=== PATIENT | female | born 1995 | race African-American/Black ===

== ENCOUNTER 2017-08-01 00:42 | Emergency (ER) | payer SELFPAY ==
[2017-08-01 00:43] VITALS: BP 134/72; PULSE 72; RESP 15; TEMP 36.9; BMI 38.9
--- NOTE | 2017-08-01 01:38 | ED.VISSUMM ---
- ER Visit Summary Date of Service: 08/01/17 Chief Complaint: [Pain right wrist] History of Present Illness: The patient is a 21 F [presents the emergency department with complaint of pain in her right wrist ?1 week. Patient denies any trauma. Patient believes it may be due to repetitive motions performed at work with the right wrist. Patient is right-hand dominant. Patient does not want to file this under workman's comp. She denies any fevers. She has not had issues with her wrist like this before.] Physical Examination: [Right wrist-no soft tissue swelling, ecchymosis, deformity. Patient has diffuse tenderness to palpation. She has normal range of motion of all digits. Patient has normal pulses. Patient has normal sensation.] Test Results: [None indicated] Emergency Department Course and Treatment: [Patient was given a wrist splint] Treatment Plan: [Patient will be given work restrictions and a prescription for naproxen] Disposition: [Discharged home in stable condition] Impression: [Right wrist pain-suspect overuse injury] This note was generated with [employer] dictation software. It may contain incorrect words, spelling, and punctuation that were not noted in review of the chart prior to signing ED Disposition - Plan for ED Patient: Chief Complaint: Upper Extremity Injury Referrals: Care Physician,No Primary [Primary Care Provider] -
--- NOTE | 2017-08-01 01:41 | ED.DEP ---
ED Disposition - Plan for ED Patient: Chief Complaint: Upper Extremity Injury Instructions: ED Sprain Wrist Prescriptions: Naproxen [Naprosyn] 500 mg PO BID PRN #20 tab Referrals: Care Physician,No Primary [Primary Care Provider] - Fortino Zhou DO [NON CLINICAL AFFILIATE] - 5-7 Days
[2017-08-01 01:53] VITALS: BP 134/72; PULSE 72; RESP 15
== END 2017-08-01 01:54 | disposition home or self-care (01) ==
PROVIDERS: Emergency Provider Emergency Medicine
DX: M25.531 Pain in right wrist (principal)
CPT/HCPCS: 99283

== ENCOUNTER 2018-06-04 | Emergency (ER) | payer MEDICAID, SELFPAY ==
[2018-06-04 00:01] VITALS: BP 151/77; PULSE 90; RESP 16; TEMP 37.1; O2SAT 98; BMI 39.6
[2018-06-04 00:09] VITALS: O2SAT 100
--- NOTE | 2018-06-04 01:21 | ED.VISSUMM ---
- ER Visit Summary Date of Service: 06/04/18 Chief Complaint: Sinus congestion and right wrist pain History of Present Illness: The patient is a 22 F with no primary care physician. Patient reports that her roommate fosters cats and they got a new cat approximately 3 weeks ago. She has been sneezing and had sinus congestion and pressure since that time. She also reports that at times her eyes are tearing, itchy, and red. Patient reports that she has right wrist pain off and on since spraining it in March. She denies any specific traumatic episode. 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 She has had not had any trauma since that time. 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 She has pain that began again yesterday. She is right-hand dominant. She reports that at night when she is laying at times her hand goes numb and she has to shake this out. She is unable to tell me whether this is an median nerve distribution. Physical Examination: Vitals: Stable. Afebrile. General: Well-nourished and well-developed. Head: Normocephalic atraumatic. Neck: Supple, no lymphadenopathy. No JVD. Nontender. Cardiovascular: Regular rate and rhythm. No murmurs. Respiratory: No respiratory distress. Clear to auscultation bilaterally. Abdominal: Soft, nontender, nondistended, normal bowel sounds. No guarding, rebound, or peritoneal signs. Back: Nontender. Extremities: Mild tenderness to palpation over the distal portion of her ulna on the dorsal surface. Negative Tinel's and Wood's test. 5 out of 5 gaming commissioner bilaterally. Normal sensation light touch throughout. Normal median, ulnar, and radial nerve function both motor and sensory distributions. 2+ radial pulse. No edema. Skin: Normal color, no rash. Neurologic: Alert and oriented ?3. Cranial nerves II through XII are intact. Normal strength and sensation. Psych: Normal affect. Emergency Department Course and Treatment: Patient is treated with Benadryl, naproxen, and prednisone. She is resting comfortably. Treatment Plan: Patient will be discharged with Zyrtec, prednisone, naproxen, Naphcon-A. Instructed to follow-up with her primary care physician in 1 week if not improving. She is also given the name of Dr. James Schulz for further evaluation of her wrist pain if this is not improving as well. Return to the emergency department for any worsening symptoms. Disposition: To home in improved and stable condition. Impression: 1. Sinus congestion, allergic. 2. Right wrist pain, chronic. This note was generated with [employer] dictation software. It may contain incorrect words, spelling, and punctuation that were not noted in review of the chart prior to signing ED Disposition - Plan for ED Patient: Disposition: Home or Assisted Living Instructions: ED Carpal Tunnel, ED Allergy Nasal Prescriptions: Cetirizine HCl [Zyrtec] 10 mg PO DAILY #14 capsule Prednisone [Deltasone] 40 mg PO DAILY #10 tablet Naproxen [Naprosyn] 500 mg PO BID #14 tablet Naphazoline HCl/Phenir Mal [Naphcon-A Eye Drops] 1 drop EACH EYE 4X/DAY PRN #1 bottle PRN Reason: Allergies Referrals: James Schulz MD [STAFF PHYSICIAN] - 1 Week if not improving Doctor,Your [STAFF PHYSICIAN] - 1 Week if not improving
--- NOTE | 2018-06-04 01:24 | ED.DCSUM_ITS ---
- ER Visit Summary Date of Service: 06/04/18 Chief Complaint: Sinus congestion and right wrist pain History of Present Illness: The patient is a 22 F with no primary care physician. Patient reports that her roommate fosters cats and they got a new cat approximately 3 weeks ago. She has been sneezing and had sinus congestion and pressure since that time. She also reports that at times her eyes are tearing, itchy, and red. Patient reports that she has right wrist pain off and on since spraining it in March. She denies any specific traumatic episode. 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 She has had not had any trauma since that time. 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 She has pain that began again yesterday. She is right-hand dominant. She reports that at night when she is laying at times her hand goes numb and she has to shake this out. She is unable to tell me whether this is an median nerve distribution. Physical Examination: Vitals: Stable. Afebrile. General: Well-nourished and well-developed. Head: Normocephalic atraumatic. Neck: Supple, no lymphadenopathy. No JVD. Nontender. Cardiovascular: Regular rate and rhythm. No murmurs. Respiratory: No respiratory distress. Clear to auscultation bilaterally. Abdominal: Soft, nontender, nondistended, normal bowel sounds. No guarding, rebound, or peritoneal signs. Back: Nontender. Extremities: Mild tenderness to palpation over the distal portion of her ulna on the dorsal surface. Negative Tinel's and Wood's test. 5 out of 5 simonizer bilaterally. Normal sensation light touch throughout. Normal median, ulnar, and radial nerve function both motor and sensory distributions. 2+ radial pulse. No edema. Skin: Normal color, no rash. Neurologic: Alert and oriented ?3. Cranial nerves II through XII are intact. Normal strength and sensation. Psych: Normal affect. Emergency Department Course and Treatment: Patient is treated with Benadryl, naproxen, and prednisone. She is resting comfortably. Treatment Plan: Patient will be discharged with Zyrtec, prednisone, naproxen, Naphcon-A. Instructed to follow-up with her primary care physician in 1 week if not improving. She is also given the name of Dr. James Schulz for further evaluation of her wrist pain if this is not improving as well. Return to the emergency department for any worsening symptoms. Disposition: To home in improved and stable condition. Impression: 1. Sinus congestion, allergic. 2. Right wrist pain, chronic. This note was generated with [employer] dictation software. It may contain incorrect words, spelling, and punctuation that were not noted in review of the chart prior to signing ED Disposition - Plan for ED Patient: Disposition: Home or Assisted Living Instructions: ED Carpal Tunnel, ED Allergy Nasal Prescriptions: Cetirizine HCl [Zyrtec] 10 mg PO DAILY #14 capsule Prednisone [Deltasone] 40 mg PO DAILY #10 tablet Naproxen [Naprosyn] 500 mg PO BID #14 tablet Naphazoline HCl/Phenir Mal [Naphcon-A Eye Drops] 1 drop EACH EYE 4X/DAY PRN #1 bottle PRN Reason: Allergies Referrals: James Schulz MD [STAFF PHYSICIAN] - 1 Week if not improving Doctor,Your [STAFF PHYSICIAN] - 1 Week if not improving
[2018-06-04] MEDS: Naproxen 500 MG Tablet PO (01:33)
[2018-06-04] MEDS: predniSONE 20 MG Tablet 60 MG PO (01:33)
[2018-06-04] MEDS: DiphenhydrAMINE 25 MG Capsule PO (01:35)
[2018-06-04 01:37] VITALS: PULSE 73; RESP 18; O2SAT 97
--- NOTE | 2018-06-04 01:38 | ED.RN ---
THIS NURSE REVIEWED D/C INSTRUCTIONS WITH PT. PT VERBALIZED UNDERSTANDING OF INSTRUCTIONS. PT DENIES FURTHER NEEDS OR QUESTIONS AT THIS TIME. PT AMBULATES FROM ROOM ON OWN WITHOUT ASSISTANCE FROM STAFF
== END 2018-06-04 01:40 | disposition home or self-care (01) ==
LOC: ED 00:32
PROVIDERS: Emergency Provider Emergency Medicine
DX: J30.81 Allergic rhinitis due to animal (cat) (dog) hair and dander (principal); M25.531 Pain in right wrist; G89.29 Other chronic pain; R50.9 Fever, unspecified
CPT/HCPCS: 99284